=== PATIENT | male | born 1985 | race Caucasian/White ===

== ENCOUNTER 2017-05-25 09:03 | Emergency (ER) | payer MEDICAID ==
[2017-05-25 09:09] VITALS: TEMP 97.9
--- NOTE | 2017-05-25 09:39 | EDPHY ---
H & P Stated Complaint: SOB/wheezing x couple of wks; out of BP med>1yr Time Seen by Provider: 05/25/17 09:38 HPI/ROS: HPI: This is a 31-year-old male who presents with Chief Complaint:SOB/wheezing x couple of wks; out of BP med>1yr Location: Chest Quality: Dyspnea Duration: Couple of weeks Signs and Symptoms: No lower extremity swelling, no chest pain, no palpitations , no wheezing Timing: Worsening Severity: Moderate Context: Patient has a history of hypertension and ROSELYN; he has been out of his meds greater than a year and has not used his CPAP machine and greater than 1 year. Three weeks ago he believes that he had a virus that he contracted from his children when they return to school. At that time he felt, low-grade fevers , body aches and fatigue. He normally works out weight lifting 5 days a week. He thought he was run down and took a break from weightlifting. Yesterday he returned, and during his workout he became extremely tired and short of breath. He returned home and was doing some yard work and again felt inability to take a deep breath and when he did chest discomfort or pressure accompanied by a feeling of shortness of breath. He denies any recent long distance trips or lower extremity swelling. For surgery approximately 3 years ago, he had an outpatient cardiac stress test by a local cad developer and it was negative per patient for ischemia. He denies any feelings of chest pain/radiation/nausea/ vomiting. He has not had any fevers in the last 2 weeks. Denies a productive cough. Modifying Factors: Comment: ROS: see HPI Constitutional: No fever, no chills, no weight loss Eyes: No blurred vision Respiratory: No shortness of breath, no cough Cardiovascular: No chest pain Gastrointestinal: No nausea, no vomiting, no diarrhea Genitourinary: No dysuria Extremities: No myalgias Neurologic: No weakness, no numbness Skin: No rashes Hematologic: No bruising, no bleeding MEDICAL/SURGICAL/SOCIAL HISTORY: Medical history: HTN, L tricep rupture, ROSELYN Surgical history: Left hand surgery for cyst, wisdom tooth extraction. Social history: . Has children. CONSTITUTIONAL: Muscular white male, awake and alert, no obvious distress HEENT: Atraumatic and normocephalic, PERRL, EOMI. Tympanic membranes clear. Full adame noted. Oropharynx clear, no exudate and moist pink mucosa. Airway patent. No lymphadenopathy. NECK: Short and thick in girth. No meningismus. Cardiovascular: Normal S1/S2, regular rate, regular rhythm, without murmur rub or gallop. PULMONARY/CHEST: Symmetrical and nontender. Clear to auscultation bilaterally. Good air movement. No accessory muscle usage. ABDOMEN: Soft, nondistended, nontender, no rebound, no guarding, no peritoneal signs, no masses or organomegaly. No CVAT. EXTREMITIES: 2/2 pulses, no deformities, no clubbing, no cyanosis or edema. No calf tenderness. No palpable cord. Negative Homans sign. NEUROLOGICAL: no focal neuro deficits. GCS 15. SKIN: Warm and dry, no erythema. no rash. Good capillary refill. Source: Patient Exam Limitations: No limitations - Personal History Current Tetanus Diphtheria and Acellular Pertussis (TDAP): Yes - Medical/Surgical History Hx Asthma: No Hx Chronic Respiratory Disease: No Hx Diabetes: No Hx Cardiac Disease: No Hx Renal Disease: No Hx Cirrhosis: No Hx Alcoholism: No Hx HIV/AIDS: No Hx Splenectomy or Spleen Trauma: No Other PMH: HTN, L tricep rupture, ROSELYN, L hand surgery for cyst, wisdom tooth extraction. - Social History Smoking Status: Never smoked Constitutional: Initial Vital Signs Temperature (C) 36.6 C 05/25/17 09:05 Heart Rate 96 05/25/17 09:05 Respiratory Rate 18 05/25/17 09:05 Blood Pressure 167/113 H 05/25/17 09:05 O2 Sat (%) 91 L 05/25/17 09:05 O2 Delivery Mode Room Air O2 (L/minute) 2 Allergies/Adverse Reactions: lisinopril Allergy (Intermediate, Verified 05/25/17 09:06) Wheezing tramadol HCl [From Ultram] Allergy (Mild, Verified 05/25/17 09:06) lightheaded Home Medications: Medication Instructions Recorded Losartan/Hydrochlorothiazide 1 each PO DAILY #30 tablet 05/25/17 [Hyzaar 100-25 Tablet] Medical Decision Making - Diagnostics EKG Interpretation: 12 lead EKG: Indication: dyspnea Rhythm: Normal sinus rhythm, rate of 66 beats per minute Cornell: Normal Intervals: Normal QRS: Normal ST segments: Nonspecific changes and more prominent V2 V3 T waves: Depressed II, III, avF, V5, V6 INTERPRETATION: Compared with EKG on 03/06/2014 The 12 lead EKG was interpreted by myself and with attending. Imaging Results: Imaging Impressions Chest X-Ray 05/25/17 09:45 Impression: 1. Poor inspiratory phase. 2. Bronchitis/airways disease. 3. No definite pneumonia. ED Course/Re-evaluation: Chest x-ray, labs, oxygen therapy ordered O2 sats 91% on room air upon arrival EKG noted to have depressed T-waves; and more prominent non specific ST changes 1030: Labs reviewed and hemoglobin 20.5, hematocrit twists 61.3; significant erythrocytosis; must evaluate for polycythemia vera. Could also be related to sleep apnea and morbid obesity. D-dimer unremarkable; troponin within normal limits Chest xray my read shows mild cardiomegaly; no opacity/effusion/pneumothorax Decision made to repeat troponin in 3 hours which will be 1300' 2nd troponin is 0.02; decreasing from the 1st one 1410: Spoke with cardiology PA who will review case with attending. 1500: Spoke with cardiology PA who advised ordered echocardiogram and once results received will give recommendations on disposition of patient 1615: Appreciate cardiology PAVanessa, evaluating patient in the ER. Recommends starting full-strength losartan/HCTZ, ENT and pulmonology follow-up for sleep apnea. They will see the patient in the office early next week. Differential Diagnosis: Shortness of breath including but not limited to pulmonary infectious process, COPD, asthma, pulmonary embolus and congestive heart failure. - Data Points Laboratory Results: Laboratory Results 05/25/17 10:00 05/25/17 10:00 05/25/17 05/25/17 05/25/17 13:05 10:00 10:00 WBC RBC Hgb Hct MCV MCH MCHC RDW Plt Count MPV Neut % (Auto) Lymph % (Auto) [place] % (Auto) Eos % (Auto) Baso % (Auto) Nucleat RBC Rel Count Absolute Neuts (auto) Absolute Lymphs (auto) Absolute Monos (auto) Absolute Eos (auto) Absolute Basos (auto) Absolute Nucleated RBC Immature Gran % Immature Gran # PT 13.1 SEC SEC (12.0-15.0) INR 1.00 (0.83-1.16) APTT 25.6 SEC SEC (23.0-38.0) D-Dimer 0.27 ug/mLFEU ug/mLFEU (0.00-0.50) Sodium 142 mEq/L mEq/L (134-144) Potassium 5.0 mEq/L mEq/L (3.5-5.2) Chloride 106 mEq/L mEq/L (97-110) Carbon Dioxide 27 mEq/l mEq/l (22-31) Anion Gap 9 mEq/L mEq/L (8-16) BUN 14 mg/dL mg/dL (7-23) Creatinine 1.1 mg/dL mg/dL (0.7-1.3) Estimated GFR > 60 Glucose 166 mg/dL H mg/dL (70-100) Calcium 9.3 mg/dL mg/dL (8.5-10.4) Total Bilirubin 1.4 mg/dL mg/dL (0.1-1.4) Conjugated Bilirubin 0.4 mg/dL mg/dL (0.0-0.5) Unconjugated Bilirubin 1.0 mg/dL mg/dL (0.0-1.1) AST 71 IU/L H IU/L (17-59) ALT 89 IU/L H IU/L (21-72) Alkaline Phosphatase 49 IU/L IU/L (38-126) Troponin I 0.021 ng/mL ng/mL 0.030 ng/mL ng/mL (0.000-0.034) (0.000-0.034) NT-Pro-B Natriuret Pep 34 pg/mL pg/mL (0-125) Total Protein 6.0 g/dL L g/dL (6.3-8.2) Albumin 3.3 g/dL L g/dL (3.5-5.0) 05/25/17 10:00 WBC 7.34 10^3/uL 10^3/uL (3.80-9.50) RBC 6.86 10^6/uL H 10^6/uL (4.40-6.38) Hgb 20.5 g/dL H* g/dL (13.7-17.5) Hct 61.3 % H* % (40.0-51.0) MCV 89.4 fL fL (81.5-99.8) MCH 29.9 pg pg (27.9-34.1) MCHC 33.4 g/dL g/dL (32.4-36.7) RDW 16.2 % H % (11.5-15.2) Plt Count 230 10^3/uL 10^3/uL (150-400) MPV 11.4 fL fL (8.7-11.7) Neut % (Auto) 63.7 % % (39.3-74.2) Lymph % (Auto) 19.5 % % (15.0-45.0) [place] % (Auto) 9.4 % % (4.5-13.0) Eos % (Auto) 4.4 % % (0.6-7.6) Baso % (Auto) 1.2 % % (0.3-1.7) Nucleat RBC Rel Count 0.0 % % (0.0-0.2) Absolute Neuts (auto) 4.68 10^3/uL 10^3/uL (1.70-6.50) Absolute Lymphs (auto) 1.43 10^3/uL 10^3/uL (1.00-3.00) Absolute Monos (auto) 0.69 10^3/uL 10^3/uL (0.30-0.80) Absolute Eos (auto) 0.32 10^3/uL 10^3/uL (0.03-0.40) Absolute Basos (auto) 0.09 10^3/uL 10^3/uL (0.02-0.10) Absolute Nucleated RBC 0.00 10^3/uL 10^3/uL (0-0.01) Immature Gran % 1.8 % H % (0.0-1.1) Immature Gran # 0.13 10^3/uL H 10^3/uL (0.00-0.10) PT INR APTT D-Dimer Sodium Potassium Chloride Carbon Dioxide Anion Gap BUN Creatinine Estimated GFR Glucose Calcium Total Bilirubin Conjugated Bilirubin Unconjugated Bilirubin AST ALT Alkaline Phosphatase Troponin I NT-Pro-B Natriuret Pep Total Protein Albumin Medications Given: Discontinued Medications Perflutren Lipid Microsphere (Definity) 1.1 mg IV AD ONE Stop: 05/25/17 15:31 Last Admin: 05/25/17 16:15 Dose: Not Given Departure - Departure Disposition: Home, Routine, Self-Care Clinical Impression: Essential hypertension, ROSELYN (obstructive sleep apnea), Hypertensive cardiomegaly Condition: Fair Instructions: Hypertrophic Cardiomyopathy (ED), Snoring (ED), Heart Healthy Diet (ED), Hypertension (ED) Additional Instructions: Please follow-up with pulmonology for repeat sleep study. Please follow up with ENT to evaluate options for snoring and sleep apnea. Please follow-up with Cardiology early next week. Take all medications as prescribed. Referrals: Vanessa Flores PA [Physician Coach Operator] - 05/31/17 11:00 am Alfredo Mayo MD [Medical Doctor] - As per Instructions See Gutierrez MD [Medical Doctor] - As per Instructions Prescriptions: Losartan/Hydrochlorothiazide [Hyzaar 100-25 Tablet] 1 each PO DAILY #30 tablet
--- NOTE | 2017-05-25 10:11 | CPEKG ---
Heart Rate: 93 RR Interval: 645 P-R Interval: 156 QRSD Interval: 82 QT Interval: 348 QTC Interval: 433 P [place]: 49 QRS [place]: 51 T Wave [place]: 264 EKG Severity - ABNORMAL ECG - EKG Impression: SINUS RHYTHM EKG Impression: PROBABLE LEFT ATRIAL ABNORMALITY EKG Impression: ABNORMAL T, CONSIDER ISCHEMIA, DIFFUSE LEADS EKG Impression: BORDERLINE ST ELEVATION, ANTERIOR LEADS Electronically Signed By: Dick Camacoh 25-May-2017 10:16:33
[2017-05-25 10:16] LABS: % IMMATURE GRANULYOCYTES 1.8 % (0.0-1.1); ABSOLUTE IMMATURE GRANULOCYTES 0.13 10^3/uL (0.00-0.10); ADD DIFF? NO; ADD MORPH? NO; ADD SCAN? NO; ATYPICAL LYMPHOCYTE FLAG 0 (0-99); FRAGMENT RBC FLAG 0 (0-99); LEFT SHIFT FLG 10 (0-99); LIPEMIA HEMOLYSIS FLAG 80 (0-99); MEAN CELL HEMOGLOBIN 29.9 pg (27.9-34.1); MEAN CELL HEMOGLOBIN CONCENTR. 33.4 g/dL (32.4-36.7); MEAN CELL VOLUME 89.4 fL (81.5-99.8); MEAN PLATELET VOLUME 11.4 fL (8.7-11.7); PLATELET CLUMPS FLAG 20 (0-99); PLATELET COUNT 230 10^3/uL (150-400); RED BLOOD CELL COUNT 6.86 10^6/uL (4.40-6.38); RED CELL DISTRIBUTION WIDTH 16.2 % (11.5-15.2)
[2017-05-25 10:22] LABS: HEMOGLOBIN 20.5 g/dL (13.7-17.5)
[2017-05-25 10:23] LABS: HEMATOCRIT 61.3 % (40.0-51.0)
[2017-05-25 10:34] LABS: PROTIME(PATIENT) 13.1 SEC (12.0-15.0)
[2017-05-25 10:35] LABS: APTT 25.6 SEC (23.0-38.0)
[2017-05-25 10:37] LABS: ALANINE AMINOTRANSFERASE 89 IU/L (21-72); ALBUMIN 3.3 g/dL (3.5-5.0); ALKALINE PHOSPHATASE 49 IU/L (38-126); ANION GAP 9 mEq/L (8-16); ASPARTATE AMINOTRANSFERASE 71 IU/L (17-59); BILIRUBIN,TOTAL 1.4 mg/dL (0.1-1.4); BILIRUBIN-CONJUGATED 0.4 mg/dL (0.0-0.5); CALCIUM 9.3 mg/dL (8.5-10.4); CARBON DIOXIDE 27 mEq/l (22-31); CHLORIDE 106 mEq/L (97-110); CREATININE 1.1 mg/dL (0.7-1.3); GLOMERULAR FILTRATION RATE > 60; GLUCOSE 166 mg/dL (70-100); SODIUM 142 mEq/L (134-144)
--- NOTE | 2017-05-25 13:30 | CPEKG ---
Heart Rate: 80 RR Interval: 750 P-R Interval: 156 QRSD Interval: 86 QT Interval: 384 QTC Interval: 443 P [place]: 38 QRS [place]: 60 T Wave [place]: 243 EKG Severity - ABNORMAL ECG - EKG Impression: SINUS RHYTHM EKG Impression: ABNORMAL T, CONSIDER ISCHEMIA, DIFFUSE LEADS Electronically Signed By: Dick Camacho 25-May-2017 13:45:55
[2017-05-25] MEDS ORDERED: PERFLUTREN LIPID MICROSPHERES 1.1 MG/ML VIAL IV ONE (15:30)
[2017-05-25 16:05] VITALS: BP 166/111; PULSE 91; RESP 16; O2SAT 93
[2017-05-25] MEDS ORDERED: LOSARTAN/HCTZ 50/12.5 1 TAB PO ONE (16:16)
--- NOTE | 2017-05-25 17:44 | GCON ---
[f rep st] CONSULTATION CARDIOLOGY CONSULTATION DATE OF CONSULTATION: 05/25/2017 REASON FOR CONSULTATION: We were asked by Shraddha Carr PA-C, to evaluate this patient for his hyperte nsive urgency. HISTORY OF PRESENT ILLNESS: The patient is a 31-year-old male with untreated hypertension and untrea mel obstructive sleep apnea. He reports running out of his medications approximately 1 year ago. Hi s primary care physician had changed practices, and he did not seek followup. He also has had CPAP p rescribed for him but was unable to tolerate it, and so it was taken away from him. He has documente d pretty severely elevated blood pressures, even back to 2013. Approximately 3 weeks ago, he contrac mel a viral illness with low-grade fevers, body aches, and fatigue. Approximately 5 days ago, he res umed a regular work out routine which typically involves lifting weights. With his weightlifting he noted feeling run down and short of breath. He was trying to engage in some household activities and started to note that he felt very short of breath. [facility] was found to be having hypertensive urgency with blood pressure of 166/111. He denies any hea dache, visual changes, chest pain, PND, or orthopnea. PAST MEDICAL/SURGICAL HISTORY: 1. Hypertension. 2. Previous triceps rupture. 3. Hand surgery. SOCIAL HISTORY: He is . He is a never smoker. REVIEW OF SYSTEMS: As per HPI. A complete 10-point review of systems was obtained and is negative e xcept for what is dictated. FAMILY HISTORY: Father with hypertension, grandfather with hypertension and dementia. No sudden car diac or cardiovascular diseases. ALLERGIES: Lisinopril and tramadol. CURRENT HOME MEDICATIONS: None listed. PHYSICAL EXAMINATION: VITAL SIGNS: BP of 166/111, heart rate of 91, respirations 16, O2 saturation 93% on room air. GENERAL: A very pleasant male in no apparent distress. Obese with a BMI of 45. H EAD: Normocephalic atraumatic. EYES: PERRL without scleral icterus. NECK: No obvious JVD. HEART : Regular rate and rhythm with distant heart sounds. LUNGS: Clear to auscultation. ABDOMEN: Nont sarah with normoactive bowel sounds. Obese. SKIN: Warm and dry without gross joint deformities det ected. PSYCH: Normal mood and affect. NEURO: He is AAO x3 grossly. LABORATORY DATA: BMP with sodium 142, potassium 5, chloride 106, CO2 of 27, BUN 14, creatinine 1.1, glucose 166. AST 71, ALT 89. NT proBNP of 34. Troponin of 0.03, then 0.02. WBC was 7.34, hemoglob in 20.5, hematocrit 61.3, platelet count of 230. 12-lead ECG, personally interpreted, demonstrates s inus rhythm with LVH and strain pattern, JAYSON. Echo reviewed with Dr. Falcon, and he is found to hernandez ve EF of 50%, diastolic dysfunction, LVH. Reported is yet to be finalized. IMPRESSION AND PLAN: 1. Hypertensive urgency. Patient's blood pressure is severely elevated. We will plan to start with losartan with hydrochlorothiazide. He will be put in for close clinical followup to better manage h is blood pressure. 2. Hypertensive cardiomyopathy. He does not appear to be overtly fluid overloaded. We will defer L asix at this point. We have stressed to him the importance of improving his blood pressure control. 3. Untreated sleep apnea. We discussed the role that this plays in blood pressure and weight gain. 4. Obesity. 5. Polycythemia, likely secondary to untreated sleep apnea and hypoxia. He will need to establish w ith a primary care provider and potentially be referred to Hematology. He is scheduled for followup in 1 week's time in our clinic. /[id number]/MODL
--- NOTE | 2017-05-26 07:57 | ECHO ---
[email or web address] [address] [address] Main: [phone] Fax: Transthoracic Echocardiogram Name: GAMA PEREZ MR#: [id number] Study Date: 05/25/2017 Study Time: 03:05 PM Date of : 1985 Age: 31 year(s) Height: 177.8 cm (70 in.) Weight: 142.88 kg (315 lb.) BSA: 2.53 m2 Gender: Male Examination: Echo with Definity Indication: Image Quality: Technically Difficult Contrast: 0.165 mg I.V. dose of Definity was administered to improve endocardial border definition. Requested by: Vanessa Flores BP: 156 mmHg/111 mmHg Heart Rate: Rhythm: Indication: Procedure Staff Production Operations Inspector: Tracee Espinal Reading Physician: Jw Falcon Requesting Provider: Conclusions: Concentric left ventricular hypertrophy with borderline left ventricular systolic function diastolic dysfunction with normal left atrial size and no tissue Doppler evidence of elevated left ventricular end-diastolic pressure no significant valvular abnormalities by Doppler normal ascending aortic measurement of 3.1 cm Measurements: Chambers Valvular Assessment AV/MV Valvular Assessment TV/PV Normal Normal Normal Name Value Range Name Value Range Name Value Range Ao Zohra (MM): 3.1 cm (2.2 cm-3.7 AV Vmax: 1.03 m/s (1 m/s-1.7 PV Vmax: 0.76 m/s (0.6 m/s-0.9 cm) m/s) m/s) IVSd (2D): 1.1 cm (0.6 cm-1.1 AV maxP mmHg ( - ) PV PGmax: 2 mmHg ( - ) cm) LVOT Vmax: 0.90 m/s (0.7 m/s-1.1 LVDd (2D): 4.9 cm (4.2 cm-5.9 m/s) cm) MV E Vmax: 0.55 m/s ( - ) LVDs (2D): 3.9 cm (2.1 cm-4 MV A Vmax: 0.72 m/s ( - ) cm) MV E/A: 0.76 ( - ) LVPWd (2D): 1.0 cm (0.6 cm-1 cm) LVEF (BP): 49 % (>=55 %) Continued Measurements: Chambers Valvular Assessment AV/MV Name Value Name Value LADs Lon.6 cm MV DecTime: 190 m/s LA Area: 14.1 cm2 MV E/E' Septal: 11.80 Patient: GAMA PEREZ Study Date: 05/25/2017 Page 1 of 2 03:05 PM LA Volume: 35 ml MV E/E' Lateral: 9.30 LA Volume Index: 13.8 ml/m2 Additional Vessels Name Value Ao Ascendin.1 cm Findings: Left Ventricle: Normal size left ventricle. Moderate concentric LV hypertrophy. Low normal left ventricular systolic function. EF is 49 %. No regional wall motion abnormality. Grade 1 diastolic dysfunction (abnormal relaxation). No LV apical thrombus. Left ventricule appears very stiff.. Right Ventricle: Normal size right ventricle. Left Atrium: The left atrium is normal in size. Right Atrium: The right atrium is normal in size. Mitral Valve: The mitral valve is normal in appearance. Trivial to mild mitral regurgitation. Aortic Valve: Aortic valve is not visualized. There is no aortic valve regurgitation. Tricuspid Valve: The tricuspid valve appears normal. There is no tricuspid valve regurgitation. Pulmonic Valve: Pulmonary valve not well visualized. Aorta: Normal size aortic root measuring 3.1 cm. Normal size ascending aorta measuring 3.1 cm. Pericardium: No pericardial effusion. (No Signature Object) Patient: GAMA PEREZ Study Date: 05/25/2017 Page 2 of 2 03:05 PM [id number]
== END 2017-05-25 16:43 | disposition home or self-care (01) ==
DX: I11.9 Hypertensive heart disease without heart failure (principal); G47.33 Obstructive sleep apnea (adult) (pediatric)
CPT/HCPCS: 71020; 93005; 99285; C8929; Q9957

== ENCOUNTER 2019-02-10 10:01 | Emergency (ER) | payer MEDICAID | END 2019-02-10 12:06 | disposition home or self-care (01) ==